=== PATIENT | female | born 2000 | race Two or more races ===

== ENCOUNTER 2019-01-07 18:29 | Emergency (ER) | payer OTHER ==
[~2019-01-07] VITALS: Ht 160 cm; Wt 61.2 kg
== END 2019-01-07 21:22 | disposition home or self-care (01) ==
LOC: ER 18:29
DX: M94.0 Chondrocostal junction syndrome [Tietze] (principal); F06.4 Anxiety disorder due to known physiological condition

== ENCOUNTER 2020-04-26 21:31 | Emergency (ER) | payer OTHER ==
[~2020-04-26] VITALS: Ht 165.1 cm; Wt 74.8 kg
[2020-04-27] MEDS ORDERED: KETO10TA2 PO (02:30)
== END 2020-04-27 02:36 | disposition home or self-care (01) ==
LOC: ER 21:31
DX: N83.291 Other ovarian cyst, right side (principal)

== ENCOUNTER 2021-06-25 08:00 | Day surgery (SDC) | payer OTHER ==
[~2021-06-25] VITALS: Ht 162.6 cm; Wt 65.8 kg
[~2021-06-25 08:00] MED LIST: KETO10TA2 PO
== END 2021-06-25 12:00 | disposition home or self-care (01) ==
LOC: CIR.AMB 08:00 → EDSTATUS 08:15 → OB/GYN 08:15 → CIR.AMB 12:00 → O/R 14:50
PROVIDERS: ATTEND Obstetrics & Gynecology
DX: N70.91 Salpingitis, unspecified (principal); Z88.0 Allergy status to penicillin; J45.909 Unspecified asthma, uncomplicated; E16.2 Hypoglycemia, unspecified; Z20.822 Contact with and (suspected) exposure to COVID-19; N73.6 Female pelvic peritoneal adhesions (postinfective)

== ENCOUNTER 2021-07-09 12:54 | Emergency (ER) | payer OTHER ==
[~2021-07-09] VITALS: Ht 162.6 cm; Wt 64.0 kg
== END 2021-07-09 15:42 | disposition home or self-care (01) ==
LOC: ER 12:54
DX: N93.9 Abnormal uterine and vaginal bleeding, unspecified (principal); Z88.0 Allergy status to penicillin